=== PATIENT | male | born 1980 ===

== ENCOUNTER 2018-07-08 18:35 | Emergency (ER) | payer SELFPAY ==
[2018-07-08 19:01] VITALS: BP 133/66; PULSE 66; RESP 18; TEMP 98.8; O2SAT 97
--- NOTE | 2018-07-08 20:59 | C.PDOC ---
History Of Present Illness 38 year old male presents to the ED c/o left facial numbness and tingling for the past 3 days. Patient also reports tearing from his left eye as well. Patient denies injury, fall, trauma, headache, visual changes, CP, palpitations, SOB. Time Seen by Provider: 07/08/18 19:02 Chief Complaint (Nursing): Weakness/Neurological Deficit History Per: Patient History/Exam Limitations: no limitations Onset/Duration Of Symptoms: Days (3) Current Symptoms Are (Timing): Still Present Number Of Syncopal Episodes: 1 Associated Symptoms Preceding Syncopal Episode: No Predromal Symptoms (Sudden Onset) Seizure Or Post-ictal Symptoms: None Fall Associated With With Symptoms: No Severity: None Recent travel outside of the [place]: No Additional History Per: Patient Past Medical History Reviewed: Historical Data, Nursing Documentation, Vital Signs Vital Signs: Last Vital Signs Temp 98.8 F 07/08/18 18:49 Pulse 66 07/08/18 18:49 Resp 18 07/08/18 18:49 BP 133/66 07/08/18 18:49 Pulse Ox 97 07/08/18 18:49 - Medical History PMH: No Chronic Diseases Surgical History: No Surg Hx Family History: States: Unknown Family Hx - Social History Hx Alcohol Use: No Hx Substance Use: No - Immunization History Hx Tetanus Toxoid Vaccination: No Hx Influenza Vaccination: No Hx Pneumococcal Vaccination: No Review Of Systems Constitutional: Negative for: Fever, Chills Eyes: Negative for: Vision Change Cardiovascular: Negative for: Chest Pain Respiratory: Negative for: Shortness of Breath Gastrointestinal: Negative for: Nausea, Vomiting Skin: Negative for: Rash Neurological: Positive for: Numbness. Negative for: Weakness, Headache, Dizziness Physical Exam - Physical Exam Appears: Non-toxic, No Acute Distress Skin: Normal Color, Warm, Dry Head: Atraumatic, Normacephalic, Other (left facail paralysis) Eye(s): bilateral: Normal Inspection, PERRL, EOMI Oral Mucosa: Moist Neck: Normal ROM, Supple Chest: Symmetrical Cardiovascular: Rhythm Regular Respiratory: Normal Breath Sounds, No Rales, No Rhonchi, No Wheezing Extremity: Normal ROM, No Tenderness, No Swelling Neurological/Psych: Oriented x3, Normal Speech, Normal Motor, Normal Sensation Gait: Steady ED Course And Treatment O2 Sat by Pulse Oximetry: 97 (ON RA) Pulse Ox Interpretation: Normal - CT Scan/US Head CT Other Rad Studies (CT/US): Read By Radiologist, Radiology Report Reviewed CT/US Interpretation: Name:BALDEV GOMEZ Exam Date:Jul 08, 2018 7:16:33 PM EDT. Modality Type:CT. Description:CT - BRAIN WITH CORONAL AND SAGITTAL MPRS. Gender:M Laterality:Not applicable. :80 Referring Physician:Mildred Whitaker (DAYO). EXAM: CT Head without Intravenous Contrast. CLINICAL HISTORY: FACIAL PARALYSIS. TECHNIQUE: Axial computed tomography images of the head/brain without intravenous contrast. 996 mGy-cm. COMPARISON: None provided. FINDINGS: BRAIN. No acute intraparenchymal hemorrhage. No mass lesion. No CT evidence for acute territorial infarct. No midline shift or extra-axial collections. VENTRICLES: No hydrocephalus. ORBITS: The orbits are unremarkable. SINUSES AND MASTOIDS: Mucous retention cyst versus polyp in right maxillary sinus incidentally. BONES: No fracture. SOFT TISSUES: Unremarkable. MISCELLANEOUS: No acute intracranial pathology. IMPRESSION: 1. No acute intracranial pathology. 2. Mucous retention cyst versus polyp in right maxillary sinus incidentally. . Electronically signed on Jul 08, 2018 8:19:37 PM EDT by: Joey Pennington M.D., JENNIFER Certified By ABR & [facility]. Fellowship Trained MRI and CT Specialist Progress Note: Patient was treated with Acyclovir po and Prednisone po. He will be d/c home with Clinic follow up. Disposition - Disposition Referrals: [facility] [Outside] Edmundo Castro MD [Staff Provider] - Disposition: HOME/ ROUTINE Disposition Time: 20:57 Condition: STABLE Additional Instructions: Follow up with neurologist and in the clinic within 1-2 days. Return to ED if feel worse. 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 - Scribe Statement The provider has reviewed the documentation as recorded by the Scribe Eddy Watson All medical record entries made by the Scribe were at my direction and personally dictated by me. I have reviewed the chart and agree that the record accurately reflects my personal performance of the history, physical exam, medical decision making, and the department course for this patient. I have also personally directed, reviewed, and agree with the discharge instructions and disposition.
--- NOTE | 2018-07-09 08:45 | CT ---
Date of service: 07/08/2018 PROCEDURE: CT HEAD WITHOUT CONTRAST. HISTORY: facial paralysis COMPARISON: None available. TECHNIQUE: Axial computed tomography images were obtained through the head/brain without intravenous contrast. Radiation dose: Total exam DLP = 996.71 mGy-cm. This CT exam was performed using one or more of the following dose reduction techniques: Automated exposure control, adjustment of the mA and/or kV according to patient size, and/or use of iterative reconstruction technique. FINDINGS: HEMORRHAGE: No intracranial hemorrhage. BRAIN: No mass effect or edema. No atrophy or chronic microvascular ischemic changes. Prominent cisterna magna. VENTRICLES: Unremarkable. No hydrocephalus. CALVARIUM: Unremarkable. PARANASAL SINUSES: Partially imaged 1.7 centimeter mucosal retention cyst and or polyp in the right maxillary sinus. Hypoplastic frontal sinus. MASTOID AIR CELLS: Unremarkable as visualized. No inflammatory changes. OTHER FINDINGS: None. IMPRESSION: No acute intracranial abnormality. Partially imaged 1.7 centimeter mucosal retention cyst and or polyp in right maxillary sinus. If neurologic symptoms persists, consider correlation with MRI. A preliminary report was generated at 8:19 p.m. on 07/08/[address] Joey Pennington from [facility].
== END 2018-07-08 21:08 | disposition home or self-care (01) ==
LOC: C.ER 18:35
DX: G51.0 Bell's palsy (principal)